=== PATIENT | female | born 1960 | race African-American/Black ===

== ENCOUNTER 2018-04-18 10:09 | Inpatient (IN) | payer OTHER, MEDICAID ==
[~2018-04-18] VITALS: Ht 172.7 cm; Wt 103.5 kg
[2018-04-18] MEDS ORDERED: SODIUM CHLORIDE 0.9% 1,000 ML IV ONE (10:33)
[2018-04-18] MEDS ORDERED: ceFAZolin 1GM/50ML 50 ML IV ONE (11:30)
[2018-04-18 11:50] LABS: Eosinophils # (auto) 0.1 uL; Lymphocytes # (auto) 1.4 uL; Mean Corpuscular Hgb Conc. 33.9 g/dL (32.0-36.0); Monocytes # (auto) 0.6 uL; Monocytes % (auto) 11.5 % (0.0-12.0); Nucleated Red Blood Cells % 0.1 %; White Blood Cell 5.4 10^3/uL (4.4-10.8)
[2018-04-18 11:52] LABS: Basophils # (auto) 0 uL; Basophils % (auto) 0.9 % (0.0-2.0); Eosinophils % (auto) 2.7 % (0.0-7.0); Hematocrit 32.2 % (36.0-46.0); Hemoglobin 10.9 g/dL (12.2-16.2); Lymphocytes % (auto) 25.2 % (10.0-50.0); Mean Corpuscular Hemoglobin 35.4 pg (28.0-32.0); Mean Corpuscular Volume 104.6 fL (80.0-100.0); Neutrophils # (auto) 3.2 uL; Neutrophils % (auto) 59.7 % (37.0-80.0); Platelet Count (auto) 142 10^3/uL (140-450); Red Blood Cells 3.07 10^6/uL (4.0-5.20); Red Cell Distribution Width 15.2 % (11.8-14.3)
[2018-04-18 12:25] LABS: Chloride 111 mmol/L (98-107); Potassium 5.4 mmol/L (3.5-5.1); Sodium 144 mmol/L (136-145)
[2018-04-18 12:27] LABS: Albumin 3.2 g/dL (3.4-5.0); Anion Gap 8 (5-15); BUN/Creatinine Ratio 23.1; Blood Urea Nitrogen 36 mg/dL (7-18); Calcium 8.9 mg/dL (8.5-10.1); Carbon Dioxide 25 mmol/L (21-32); GFR African American 44 mL/min; GFR Non-African American 36 mL/min; Glucose 64 mg/dL (74-106); Magnesium 2.3 mg/dL (1.6-2.6)
[2018-04-18 12:42] LABS: Alanine Aminotransferase 35 U/L (13-56); Alkaline Phosphatase 76 U/L (45-117); Aspartate Aminotransferase 46 U/L (15-37); Bilirubin, Total 0.7 mg/dL (0.2-1.0); Total Protein 7.8 g/dL (6.4-8.2)
[2018-04-18] MEDS ORDERED: MORPHINE SULFATE 4 MG/ML SYR/VIAL IV PRN ×2 (15:15)
[2018-04-18] MEDS ORDERED: NITROGLYCERIN 0.4 MG SL TAB SL PRN (15:15)
[2018-04-18] MEDS ORDERED: TEMAZEPAM 15 MG CAP PO PRN (15:15)
[2018-04-18] MEDS ORDERED: ONDANSETRON HCL 4 MG/2 ML VIAL IV PRN (15:15)
[2018-04-18] MEDS ORDERED: SODIUM POLYSTYRENE SULF 15GM/60ML SUSP PO ONE (15:15)
[2018-04-18] MEDS ORDERED: HYDROcodone-ACET 5/325MG TAB PO PRN (15:15)
[2018-04-18] MEDS ORDERED: DEXTROSE (50%) 50ML SYRG IV PRN (15:15)
[2018-04-18] MEDS ORDERED: LORazepam 0.5 MG TAB PO PRN (15:15)
[2018-04-18] MEDS ORDERED: ACETAMINOPHEN 500 MG TAB PO PRN (15:15)
[2018-04-18] MEDS ORDERED: LACTULOSE 20Gm/30ML SOLN PO ONE (15:15)
[2018-04-18] MEDS: FUROSEMIDE 40 MG/4 ML VIAL IV SCH (15:34)
[2018-04-18 16:02] LABS: Folate (Folic Acid) > 24.00 ng/mL (5.38-24)
[2018-04-18 17:00] VITALS: BP 120/95
[2018-04-18] MEDS: InsuLIN REG 1unit/0.01ml Soln (100units/ml) SC SCH ×2 (17:00→22:00)
[2018-04-18] MEDS: LACTULOSE 20Gm/30ML SOLN PO SCH (18:00)
[2018-04-18] MEDS: PANTOPRAZOLE 40 MG TAB PO SCH (19:32)
[2018-04-18] MEDS: ACCU-CHEK COMFORT CURVE STRIP VI SCH ×2 (19:32→22:00)
[2018-04-18] MEDS: SODIUM CHLOR 0.9% PF (SALINE LOCK) 10ML VIAL/SYR IV SCH (19:33)
[2018-04-18 20:00] VITALS: BP 130/67
[2018-04-18] MEDS ORDERED: LEVO25TA49 PO (20:12)
[2018-04-18] MEDS ORDERED: ALLO100T PO (20:12)
[2018-04-18] MEDS ORDERED: OXYB15TA12 PO (20:12)
[2018-04-18] MEDS ORDERED: MIDO10TA10 PO (20:12)
[2018-04-18] MEDS ORDERED: GABA300C10 PO (20:12)
[2018-04-18] MEDS ORDERED: ATOR20TA50 PO (20:12)
[2018-04-18] MEDS ORDERED: CITA-77 PO (20:12)
[2018-04-18] MEDS ORDERED: VALP250C3 PO (20:12)
[2018-04-18] MEDS ORDERED: OLAN10TA29 PO (20:12)
[2018-04-18] MEDS ORDERED: ALBUAER3 IN (20:12)
[2018-04-18 21:46] VITALS: BP 130/67
[2018-04-18] MEDS: CARVEDILOL 3.125 MG TAB PO SCH (22:00)
[2018-04-19] MEDS: LACTULOSE 20Gm/30ML SOLN PO SCH ×5 (00:45→23:57)
[2018-04-19 05:14] VITALS: BP 121/72
[2018-04-19] MEDS: SODIUM CHLOR 0.9% PF (SALINE LOCK) 10ML VIAL/SYR IV SCH ×3 (06:31→22:00)
[2018-04-19 06:59] LABS: Cholesterol 85 mg/dL (< 200); HDL Cholesterol 35 mg/dL (40-59); LDL Cholesterol 41 mg/dL (< 100); Triglycerides 68 mg/dL (< 150)
[2018-04-19] MEDS: InsuLIN REG 1unit/0.01ml Soln (100units/ml) SC SCH ×4 (07:00→22:00)
[2018-04-19] MEDS: ACCU-CHEK COMFORT CURVE STRIP VI SCH ×4 (07:08→22:00)
[2018-04-19 08:40] VITALS: BP 122/69
[2018-04-19] MEDS: ASPirin 81 mg TAB PO SCH (09:49)
[2018-04-19] MEDS: FUROSEMIDE 40 MG/4 ML VIAL IV SCH (09:49)
[2018-04-19] MEDS: PANTOPRAZOLE 40 MG TAB PO SCH (09:49)
[2018-04-19] MEDS: CARVEDILOL 3.125 MG TAB PO SCH ×2 (09:50→22:00)
[2018-04-19] MEDS: ENOXAPARIN SOD 40 MG/0.4 ML SYRINGE SC SCH (09:50)
[2018-04-19] MEDS ORDERED: ENALAPRIL MALEATE 2.5 MG TAB PO SCH (10:00)
[2018-04-19 12:26] VITALS: BP 97/58
[2018-04-19 16:46] VITALS: BP 97/57
[2018-04-19 20:00] VITALS: BP 100/61
[2018-04-19 22:19] VITALS: BP 100/61
[2018-04-20 05:00] VITALS: BP 117/67
[2018-04-20 05:51] LABS: Basophils # (auto) 0 uL; Eosinophils # (auto) 0.2 uL; Hemoglobin 11.4 g/dL (12.2-16.2); Lymphocytes # (auto) 1.3 uL; Monocytes # (auto) 0.7 uL; Monocytes % (auto) 14.7 % (0.0-12.0); Neutrophils # (auto) 2.7 uL; Nucleated Red Blood Cells % 0.1 %; Red Blood Cells 3.23 10^6/uL (4.0-5.20)
[2018-04-20 05:53] LABS: Basophils % (auto) 0.5 % (0.0-2.0); Eosinophils % (auto) 3.5 % (0.0-7.0); Hematocrit 33.9 % (36.0-46.0); Lymphocytes % (auto) 26.8 % (10.0-50.0); Mean Corpuscular Hemoglobin 35.2 pg (28.0-32.0); Mean Corpuscular Hgb Conc. 33.6 g/dL (32.0-36.0); Mean Corpuscular Volume 104.8 fL (80.0-100.0); Neutrophils % (auto) 54.5 % (37.0-80.0); Platelet Count (auto) 168 10^3/uL (140-450); Red Cell Distribution Width 14.6 % (11.8-14.3)
[2018-04-20 06:12] LABS: Albumin 3.1 g/dL (3.4-5.0); BUN/Creatinine Ratio 19.4; Bilirubin, Direct 0.3 mg/dL (0-0.2); Calcium 8.9 mg/dL (8.5-10.1); Potassium 4.4 mmol/L (3.5-5.1)
[2018-04-20 06:15] LABS: Bilirubin, Total 0.4 mg/dL (0.2-1.0); Total Protein 7.6 g/dL (6.4-8.2)
[2018-04-20] MEDS: SODIUM CHLOR 0.9% PF (SALINE LOCK) 10ML VIAL/SYR IV SCH ×2 (06:19→12:17)
[2018-04-20] MEDS: LACTULOSE 20Gm/30ML SOLN PO SCH ×2 (06:20→12:17)
[2018-04-20] MEDS: ACCU-CHEK COMFORT CURVE STRIP VI SCH ×2 (07:00→11:29)
[2018-04-20] MEDS: InsuLIN REG 1unit/0.01ml Soln (100units/ml) SC SCH ×2 (07:00→11:30)
[2018-04-20 09:00] VITALS: BP 119/71
[2018-04-20] MEDS: FUROSEMIDE 40 MG/4 ML VIAL IV SCH (10:00)
[2018-04-20] MEDS ORDERED: ENALAPRIL MALEATE 2.5 MG TAB PO SCH (10:00)
[2018-04-20] MEDS: ENOXAPARIN SOD 40 MG/0.4 ML SYRINGE SC SCH (10:16)
[2018-04-20] MEDS: ASPirin 81 mg TAB PO SCH (10:17)
[2018-04-20] MEDS: CARVEDILOL 3.125 MG TAB PO SCH (10:17)
[2018-04-20] MEDS: PANTOPRAZOLE 40 MG TAB PO SCH (10:17)
[2018-04-20 13:00] VITALS: BP 123/78
[2018-04-20 15:38] VITALS: BP_SYST 119; BP_SYST 125; BP_DIAS 71; BP_DIAS 76
[2018-04-20 17:00] VITALS: BP 125/76
== END 2018-04-20 17:00 | disposition home or self-care (01) | DRG 441 ==
LOC: ER 10:10 → TELE 10:11 → TELE-EAST 16:58
PROVIDERS: ADMIT Internal Medicine; ATTEND Internal Medicine
DX: K72.90 Hepatic failure, unspecified without coma (principal); N17.0 Acute kidney failure with tubular necrosis; E44.0 Moderate protein-calorie malnutrition; R78.81 Bacteremia; E87.5 Hyperkalemia; F20.9 Schizophrenia, unspecified; N18.3 Chronic kidney disease, stage 3 (moderate); E11.22 Type 2 diabetes mellitus with diabetic chronic kidney disease; E03.9 Hypothyroidism, unspecified; D63.8 Anemia in other chronic diseases classified elsewhere; B19.20 Unspecified viral hepatitis C without hepatic coma; Z96.651 Presence of right artificial knee joint; I12.9 Hypertensive chronic kidney disease with stage 1 through stage 4 chronic kidney disease, or unspecified chronic kidney disease; Z87.891 Personal history of nicotine dependence; Z87.81 Personal history of (healed) traumatic fracture; W19.XXXA Unspecified fall, initial encounter; Y93.89 Activity, other specified; Y92.89 Other specified places as the place of occurrence of the external cause; Y99.8 Other external cause status
CPT/HCPCS: 36415; 70450; 71045; 73030; 73562; 80048; 80053; 80061; 80076; 82140; 82550; 82607; 82746; 82962; 83036; 83735; 83880; 84443; 84484; 85025; 85652; 87081; 93005; 93306; 93886; 96361; 96374; J0690

== ENCOUNTER 2018-10-10 21:17 | Emergency (ER) | payer MEDICAID, OTHER ==
[~2018-10-10] VITALS: Ht 172.7 cm; Wt 99.8 kg
[~2018-10-10 21:17] MED LIST: ALBUAER3 IN; ALLO100T PO; ATOR20TA50 PO; CITA-77 PO; GABA300C10 PO; LEVO25TA49 PO; MIDO10TA10 PO; OLAN10TA29 PO; OXYB15TA12 PO; VALP250C3 PO
[2018-10-10] MEDS ORDERED: SODIUM CHLORIDE 0.9% 1,000 ML IVB ONE (21:48)
[2018-10-10 22:37] LABS: Basophils # (auto) 0.1 uL; Hemoglobin 11.5 g/dL (12.2-16.2); Monocytes # (auto) 0.4 uL; Neutrophils # (auto) 2.5 uL; White Blood Cell 5.1 10^3/uL (4.4-10.8)
[2018-10-10 22:39] LABS: Basophils % (auto) 1.1 % (0.0-2.0); Eosinophils # (auto) 0.2 uL; Eosinophils % (auto) 4.9 % (0.0-7.0); Hematocrit 34.9 % (36.0-46.0); Lymphocytes # (auto) 1.9 uL; Lymphocytes % (auto) 36.9 % (10.0-50.0); Mean Corpuscular Hemoglobin 34.4 pg (28.0-32.0); Mean Corpuscular Hgb Conc. 32.8 g/dL (32.0-36.0); Mean Corpuscular Volume 104.9 fL (80.0-100.0); Monocytes % (auto) 8.4 % (0.0-12.0); Neutrophils % (auto) 48.7 % (37.0-80.0); Nucleated Red Blood Cells % 0.1 %; Platelet Count (auto) 173 10^3/uL (140-450); Red Blood Cells 3.33 10^6/uL (4.0-5.20)
[2018-10-10 22:55] LABS: Alanine Aminotransferase 24 U/L (13-56); Albumin 3.4 g/dL (3.4-5.0); Anion Gap 7 (5-15); Aspartate Aminotransferase 25 U/L (15-37); BUN/Creatinine Ratio 20.8; Blood Alcohol < 3.0 mg/dL (0-5); Blood Urea Nitrogen 22 mg/dL (7-18); Calcium 9.5 mg/dL (8.5-10.1); Carbon Dioxide 26 mmol/L (21-32); Chloride 111 mmol/L (98-107); GFR African American 68 mL/min; GFR Non-African American 57 mL/min; Glucose 115 mg/dL (74-106); Salicylate < 1.7 mg/dL (2.8-20.0); Sodium 144 mmol/L (136-145)
[2018-10-10 22:57] LABS: Alkaline Phosphatase 95 U/L (45-117); Bilirubin, Total 0.4 mg/dL (0.2-1.0); Total Protein 7.8 g/dL (6.4-8.2)
[2018-10-11 00:19] LABS: Acetaminophen < 2.0 ug/mL (10-30)
[2018-10-11 01:00] LABS: Alcohol, Urine < 3.0 mg/dL (0-5); Amphetamine Screen, Urine NEGATIVE (NEGATIVE); Barbiturate Scree,Urine NEGATIVE (NEGATIVE); Benzodiazephine Screen, Urine NEGATIVE (NEGATIVE); Cannabinoid Screen, Urine NEGATIVE (NEGATIVE); Cocaine Screen, Urine NEGATIVE (NEGATIVE); Opiate Scree,Urine NEGATIVE (NEGATIVE); Phencyclidine Screen, Urine NEGATIVE (NEGATIVE)
[2018-10-11 01:56] VITALS: BP 142/79
== END 2018-10-11 02:13 | disposition home or self-care (01) ==
LOC: ER 21:23
DX: T49.6X2A Poisoning by otorhinolaryngological drugs and preparations, intentional self-harm, initial encounter (principal); E11.9 Type 2 diabetes mellitus without complications; I10 Essential (primary) hypertension; F20.9 Schizophrenia, unspecified; Y92.89 Other specified places as the place of occurrence of the external cause
CPT/HCPCS: 36415; 80053; 80307; 80320; 80329; 85025; 99284; J7030

== ENCOUNTER 2019-06-06 09:59 | Emergency (ER) | payer OTHER ==
[~2019-06-06] VITALS: Ht 172.7 cm; Wt 79.4 kg
[~2019-06-06 09:59] MED LIST changes: +AMOX500T92 PO; +LEV25T PO; -LEVO25TA49 PO; +METF-370 PO; -MIDO10TA10 PO
[2019-06-06] MEDS ORDERED: LORazepam 0.5 MG TAB PO ONE (16:15)
[2019-06-06] MEDS ORDERED: LORazepam 2MG/ML-1ML VIAL IM ONE (18:30)
[2019-06-06] MEDS ORDERED: HALOPERIDOL LACTATE 5 MG/ML INJ VIAL IM ONE (18:30)
[2019-06-06] MEDS ORDERED: diphenhdrAMINE HCL 50 MG/1 ML VL IM ONE (18:30)
[2019-06-06] MEDS ORDERED: HALOPERIDOL LACTATE 5 MG/ML INJ VIAL ONE (18:48)
[2019-06-06 22:40] LABS: Chloride 112 mmol/L (98-107); Sodium 143 mmol/L (136-145)
[2019-06-06 22:46] LABS: Alanine Aminotransferase 30 U/L (13-56); Albumin 2.8 g/dL (3.4-5.0); Alkaline Phosphatase 130 U/L (45-117); Anion Gap 4 (5-15); Aspartate Aminotransferase 43 U/L (15-37); BUN/Creatinine Ratio 30.7; Bilirubin, Total 0.5 mg/dL (0.2-1.0); Blood Alcohol < 3.0 mg/dL (0-5); Blood Urea Nitrogen 39 mg/dL (7-18); Calcium 8.8 mg/dL (8.5-10.1); Carbon Dioxide 27 mmol/L (21-32); GFR African American 56 mL/min; GFR Non-African American 46 mL/min; Glucose 137 mg/dL (74-106); Total Protein 7.2 g/dL (6.4-8.2)
[2019-06-06 22:51] LABS: Potassium 5.9 mmol/L (3.5-5.1)
[2019-06-06] MEDS ORDERED: CALCIUM GLUC 4.65meq/50ml D5AE 50 ML IV ONE (23:15)
[2019-06-06] MEDS ORDERED: SODIUM CHLORIDE 0.9% 1,000 ML IV ONE (23:15)
[2019-06-06] MEDS ORDERED: SODIUM BICARBONATE 8.4 % INJ 50ML VIAL IV ONE (23:15)
[2019-06-07 01:47] LABS: Basophils # (auto) 0.1 uL; Eosinophils # (auto) 0.3 uL; Eosinophils % (auto) 6.3 % (0.0-7.0); Neutrophils # (auto) 2.7 uL; White Blood Cell 5.2 10^3/uL (4.4-10.8)
[2019-06-07 01:50] LABS: Basophils % (auto) 2.2 % (0.0-2.0); Hematocrit 30.6 % (36.0-46.0); Hemoglobin 10.5 g/dL (12.2-16.2); Lymphocytes # (auto) 1.5 uL; Lymphocytes % (auto) 27.9 % (10.0-50.0); Mean Corpuscular Hemoglobin 35.1 pg (28.0-32.0); Mean Corpuscular Hgb Conc. 34.2 g/dL (32.0-36.0); Mean Corpuscular Volume 102.5 fL (80.0-100.0); Monocytes # (auto) 0.6 uL; Neutrophils % (auto) 52.6 % (37.0-80.0); Platelet Count (auto) 195 10^3/uL (140-450); Red Blood Cells 2.99 10^6/uL (4.0-5.20); Red Cell Distribution Width 14.3 % (11.8-14.3)
[2019-06-07 04:35] LABS: Calcium 8.9 mg/dL (8.5-10.1)
[2019-06-07 04:37] LABS: Albumin 2.4 g/dL (3.4-5.0); BUN/Creatinine Ratio 26.2
[2019-06-07 04:40] LABS: Bilirubin, Total 0.4 mg/dL (0.2-1.0); Total Protein 6.7 g/dL (6.4-8.2)
[2019-06-07 12:44] VITALS: BP 117/48
== END 2019-06-07 14:17 | disposition home or self-care (01) ==
LOC: EDBD 09:59 → ER 09:59
DX: F41.9 Anxiety disorder, unspecified (principal); F20.9 Schizophrenia, unspecified; F17.210 Nicotine dependence, cigarettes, uncomplicated
CPT/HCPCS: 36415; 80053; 80320; 85025; 96365; 96372; 96375; 99284; J0610; J1200; J1630; J2060

== ENCOUNTER 2020-05-05 13:59 | Inpatient (IN) | payer OTHER ==
[~2020-05-05] VITALS: Ht 172.7 cm; Wt 98.6 kg
[~2020-05-05 13:59] MED LIST changes: -OLAN10TA29 PO; +OLAN1TAB19 PO
[2020-05-05] MEDS ORDERED: SODIUM CHLORIDE 0.9% 1,000 ML IV ONE (15:30)
[2020-05-05] MEDS ORDERED: TETANUS-DIPTH-ACEL PERTUSSIS 0.5ML SYR Tdap IM ONE (15:45)
[2020-05-05] MEDS ORDERED: cefTRIAXone 1GM/50ML D5W 50 ML IV ONE ×2 (15:45→16:45)
[2020-05-05 15:59] LABS: Basophils # (auto) 0 10 ^3/uL (0-0.2); Eosinophils # (auto) 0.1 10 ^3/uL (0-0.8); Mean Corpuscular Volume 104.5 fL (80.0-100.0); Monocytes # (auto) 0.7 10 ^3/uL (0-1.3); Neutrophils # (auto) 4.1 10 ^3/uL (1.6-8.6); White Blood Cell 6.6 10^3/uL (4.4-10.8)
[2020-05-05 16:01] LABS: Basophils % (auto) 0.5 % (0.0-2.0); Eosinophils % (auto) 2.1 % (0.0-7.0); Hematocrit 32.8 % (36.0-46.0); Hemoglobin 10.9 g/dL (12.2-16.2); Lymphocytes # (auto) 1.7 10 ^3/uL (0.4-5.4); Mean Corpuscular Hemoglobin 34.9 pg (28.0-32.0); Mean Corpuscular Hgb Conc. 33.4 g/dL (32.0-36.0); Monocytes % (auto) 10.7 % (0.0-12.0); Neutrophils % (auto) 61.7 % (37.0-80.0); Platelet Count (auto) 183 10^3/uL (140-450); Red Blood Cells 3.14 10^6/uL (4.0-5.20); Red Cell Distribution Width 14.2 % (11.8-14.3)
[2020-05-05 16:17] LABS: Albumin 3.2 g/dL (3.4-5.0); Anion Gap 5 (5-15); Blood Urea Nitrogen 32 mg/dL (7-18); Calcium 9.1 mg/dL (8.5-10.1); Carbon Dioxide 27 mmol/L (21-32); Chloride 112 mmol/L (98-107); Glucose 87 mg/dL (74-106); Magnesium 2.4 mg/dL (1.6-2.6); Potassium 4.4 mmol/L (3.5-5.1); Sodium 144 mmol/L (136-145)
[2020-05-05 16:21] LABS: Alanine Aminotransferase 20 U/L (13-56); Alkaline Phosphatase 76 U/L (45-117); Aspartate Aminotransferase 20 U/L (15-37); BUN/Creatinine Ratio 27.6; Bilirubin, Total 0.5 mg/dL (0.2-1.0); GFR African American 61 mL/min; GFR Non-African American 51 mL/min; Total Protein 7.4 g/dL (6.4-8.2)
[2020-05-05 16:25] LABS: Urine Bacteria FEW /hpf (None Seen); Urine Blood Negative /uL (Negative); Urine Specific Gravity 1.011 (1.001-1.035); Urine WBC 6 /hpf (0 - 5)
[2020-05-05] MEDS ORDERED: SPIRONOLACTONE 25 MG TAB PO ONE (16:45)
[2020-05-05] MEDS ORDERED: FUROSEMIDE 40 MG/4 ML VIAL IV ONE (16:45)
[2020-05-05] MEDS ORDERED: NITROGLYCERIN 0.4 MG SL TAB SL PRN (18:00)
[2020-05-05] MEDS ORDERED: MORPHINE SULF INJ 2 MG/ML SYRINGE 1ML IV PRN ×2 (18:00)
[2020-05-05] MEDS ORDERED: ACETAMINOPHEN 500 MG TAB PO PRN (18:00)
[2020-05-05] MEDS ORDERED: DEXTROSE (50%) 50ML SYRG IV PRN (18:00)
[2020-05-05] MEDS ORDERED: ONDANSETRON HCL 4 MG/2 ML VIAL IV PRN (18:00)
[2020-05-05] MEDS ORDERED: HYDROcodone-ACET 5/325MG TAB PO PRN (18:00)
[2020-05-05] MEDS: DOXYCYCLINE 100MG/250ML 250 ML IV SCH (18:26)
[2020-05-05] MEDS: GABAPENTIN 300 MG CAP PO SCH (21:45)
[2020-05-05] MEDS: METOPROLOL TARTRATE 25 MG TAB PO SCH (21:46)
[2020-05-05] MEDS: OLANZapine 5 MG TAB PO SCH (21:46)
[2020-05-05] MEDS: ATORVASTATIN 20 MG TAB PO SCH (21:47)
[2020-05-05] MEDS: ACCU-CHEK COMFORT CURVE STRIP VI SCH (21:47)
[2020-05-05] MEDS: VALPROIC ACID 250 MG/5 ML ORAL SOLN PO SCH (21:47)
[2020-05-05] MEDS: InsuLIN REG 1unit/0.01ml Soln (100units/ml) SC SCH (21:54)
[2020-05-06 00:33] VITALS: BP 136/58
[2020-05-06] MEDS: DOXYCYCLINE 100MG/250ML 250 ML IV SCH (05:08)
[2020-05-06 05:23] VITALS: BP 105/51
[2020-05-06] MEDS: LEVOTHYROXINE SODIUM 25 MCG TAB PO SCH (05:51)
[2020-05-06] MEDS: ACCU-CHEK COMFORT CURVE STRIP VI SCH ×2 (05:51→11:30)
[2020-05-06] MEDS: InsuLIN REG 1unit/0.01ml Soln (100units/ml) SC SCH ×2 (05:58→11:30)
[2020-05-06 09:20] VITALS: BP 108/60
[2020-05-06] MEDS ORDERED: FUROSEMIDE 20 MG/2 ML VIAL IV SCH (10:00)
[2020-05-06] MEDS: cefTRIAXone 1GM/50ML D5W 50 ML IV SCH (10:21)
[2020-05-06] MEDS: METOPROLOL TARTRATE 25 MG TAB PO SCH ×2 (10:23→21:51)
[2020-05-06] MEDS: CITALOPRAM HYDROBR 20 MG TAB PO SCH (10:23)
[2020-05-06] MEDS: VALPROIC ACID 250 MG/5 ML ORAL SOLN PO SCH ×2 (10:23→21:50)
[2020-05-06] MEDS: FAMOTIDINE 20 MG TAB PO SCH (10:24)
[2020-05-06] MEDS: OLANZapine 5 MG TAB PO SCH ×2 (10:24→21:50)
[2020-05-06] MEDS: GABAPENTIN 300 MG CAP PO SCH ×2 (10:24→21:51)
[2020-05-06] MEDS: ALLOPURINOL 100 MG TAB PO SCH (10:24)
[2020-05-06 13:16] VITALS: BP 111/50
[2020-05-06 16:37] VITALS: BP 105/55
[2020-05-06] MEDS: SODIUM CHLORIDE 0.9% 1,000 ML IV SCH (16:54)
[2020-05-06] MEDS: ATORVASTATIN 20 MG TAB PO SCH (21:50)
[2020-05-06 22:00] VITALS: BP 96/65
[2020-05-07 05:30] VITALS: BP 108/62
[2020-05-07] MEDS: LEVOTHYROXINE SODIUM 25 MCG TAB PO SCH (06:06)
[2020-05-07 09:22] VITALS: BP 101/54
[2020-05-07] MEDS: cefTRIAXone 1GM/50ML D5W 50 ML IV SCH (10:13)
[2020-05-07] MEDS: FAMOTIDINE 20 MG TAB PO SCH (10:18)
[2020-05-07] MEDS: VALPROIC ACID 250 MG/5 ML ORAL SOLN PO SCH ×2 (10:18→21:47)
[2020-05-07] MEDS: GABAPENTIN 300 MG CAP PO SCH ×2 (10:18→21:45)
[2020-05-07] MEDS: ALLOPURINOL 100 MG TAB PO SCH (10:18)
[2020-05-07] MEDS: OLANZapine 5 MG TAB PO SCH ×2 (10:19→21:46)
[2020-05-07] MEDS: CITALOPRAM HYDROBR 20 MG TAB PO SCH (10:19)
[2020-05-07] MEDS: METOPROLOL TARTRATE 25 MG TAB PO SCH ×2 (10:19→21:51)
[2020-05-07 10:55] LABS: Basophils # (auto) 0 10 ^3/uL (0-0.2); Eosinophils # (auto) 0.2 10 ^3/uL (0-0.8); Mean Corpuscular Volume 104.7 fL (80.0-100.0); Neutrophils # (auto) 2.3 10 ^3/uL (1.6-8.6)
[2020-05-07 10:58] LABS: Eosinophils % (auto) 4.5 % (0.0-7.0); Hematocrit 33.9 % (36.0-46.0); Hemoglobin 11.3 g/dL (12.2-16.2); Lymphocytes # (auto) 1.4 10 ^3/uL (0.4-5.4); Lymphocytes % (auto) 30.3 % (10.0-50.0); Mean Corpuscular Hemoglobin 34.7 pg (28.0-32.0); Mean Corpuscular Hgb Conc. 33.2 g/dL (32.0-36.0); Monocytes # (auto) 0.6 10 ^3/uL (0-1.3); Monocytes % (auto) 13.3 % (0.0-12.0); Neutrophils % (auto) 50.9 % (37.0-80.0); Platelet Count (auto) 190 10^3/uL (140-450); Red Blood Cells 3.24 10^6/uL (4.0-5.20); White Blood Cell 4.5 10^3/uL (4.4-10.8)
[2020-05-07 11:28] LABS: BUN/Creatinine Ratio 25.9; Magnesium 2.3 mg/dL (1.6-2.6); Potassium 4.5 mmol/L (3.5-5.1)
[2020-05-07] MEDS: SODIUM CHLORIDE 0.9% 1,000 ML IV SCH (12:15)
[2020-05-07 12:50] VITALS: BP 116/69
[2020-05-07 16:52] VITALS: BP 117/60
[2020-05-07] MEDS: ATORVASTATIN 20 MG TAB PO SCH (21:45)
[2020-05-07 22:00] VITALS: BP 97/62
[2020-05-08 05:00] VITALS: BP 116/66
[2020-05-08] MEDS: LEVOTHYROXINE SODIUM 25 MCG TAB PO SCH (06:17)
[2020-05-08] MEDS: cefTRIAXone 1GM/50ML D5W 50 ML IV SCH (08:25)
[2020-05-08] MEDS: SODIUM CHLORIDE 0.9% 1,000 ML IV SCH (08:25)
[2020-05-08 08:54] VITALS: BP 130/68
[2020-05-08] MEDS: FAMOTIDINE 20 MG TAB PO SCH (09:22)
[2020-05-08] MEDS: OLANZapine 5 MG TAB PO SCH (09:23)
[2020-05-08] MEDS: CITALOPRAM HYDROBR 20 MG TAB PO SCH (09:23)
[2020-05-08] MEDS: ALLOPURINOL 100 MG TAB PO SCH (09:23)
[2020-05-08] MEDS: VALPROIC ACID 250 MG/5 ML ORAL SOLN PO SCH (09:24)
[2020-05-08] MEDS: GABAPENTIN 300 MG CAP PO SCH (09:24)
[2020-05-08] MEDS: METOPROLOL TARTRATE 25 MG TAB PO SCH (09:25)
[2020-05-08 09:51] VITALS: BP 130/68
== END 2020-05-08 12:10 | disposition home health service (06) | DRG 604 ==
LOC: ER 13:59 → EDBD 13:59 → TELE-EAST 14:00 → TELE-CENTR 05-06 03:10
PROVIDERS: ADMIT Nurse Practitioner Acute Care; ATTEND Family Medicine
DX: S80.212A Abrasion, left knee, initial encounter (principal); N17.0 Acute kidney failure with tubular necrosis; E44.1 Mild protein-calorie malnutrition; N39.0 Urinary tract infection, site not specified; R05 Cough; F20.9 Schizophrenia, unspecified; F31.9 Bipolar disorder, unspecified; E11.21 Type 2 diabetes mellitus with diabetic nephropathy; E66.9 Obesity, unspecified; J44.9 Chronic obstructive pulmonary disease, unspecified; Z20.828 Contact with and (suspected) exposure to other viral communicable diseases; I10 Essential (primary) hypertension; S80.211A Abrasion, right knee, initial encounter; W01.0XXA Fall on same level from slipping, tripping and stumbling without subsequent striking against object, initial encounter; Y93.01 Activity, walking, marching and hiking; Z68.33 Body mass index [BMI] 33.0-33.9, adult; Y92.89 Other specified places as the place of occurrence of the external cause; Y99.8 Other external cause status
CPT/HCPCS: 36415; 71045; 73562; 80048; 80053; 80164; 81001; 82962; 83036; 83605; 83735; 83880; 84443; 84484; 85025; 87040; 87081; 87086; 87426; 90471; 90715; 93005; 96365; 96375; 97116; 97163; 97530; G0378; J0696; J1815; J3490

== ENCOUNTER 2020-05-10 07:30 | Emergency (ER) | payer OTHER ==
[~2020-05-10] VITALS: Ht 170.2 cm; Wt 79.4 kg
[2020-05-10] MEDS ORDERED: SODIUM CHLORIDE 0.9% 1,000 ML IV ONE (09:00)
[2020-05-10 09:21] LABS: Eosinophils # (auto) 0.3 10 ^3/uL (0-0.8); Hemoglobin 10.3 g/dL (12.2-16.2); Lymphocytes # (auto) 1.6 10 ^3/uL (0.4-5.4); Monocytes # (auto) 0.9 10 ^3/uL (0-1.3)
[2020-05-10 09:22] LABS: Basophils # (auto) 0 10 ^3/uL (0-0.2); Basophils % (auto) 0.7 % (0.0-2.0); Eosinophils % (auto) 4.6 % (0.0-7.0); Mean Corpuscular Hemoglobin 34.7 pg (28.0-32.0); Mean Corpuscular Hgb Conc. 33.1 g/dL (32.0-36.0); Mean Corpuscular Volume 104.9 fL (80.0-100.0); Monocytes % (auto) 15.7 % (0.0-12.0); Nucleated Red Blood Cells % 0.2 %; Platelet Count (auto) 170 10^3/uL (140-450); Red Blood Cells 2.96 10^6/uL (4.0-5.20); Red Cell Distribution Width 14.3 % (11.8-14.3); White Blood Cell 5.8 10^3/uL (4.4-10.8)
[2020-05-10 09:41] LABS: Albumin 3.2 g/dL (3.4-5.0); Anion Gap 4 (5-15); Blood Urea Nitrogen 36 mg/dL (7-18); Calcium 9.6 mg/dL (8.5-10.1); Carbon Dioxide 26 mmol/L (21-32); Chloride 113 mmol/L (98-107); Glucose 104 mg/dL (74-106); Magnesium 2.3 mg/dL (1.6-2.6); Potassium 4.6 mmol/L (3.5-5.1); Sodium 143 mmol/L (136-145)
[2020-05-10] MEDS ORDERED: LORazepam 2MG/ML-1ML VIAL IM ONE (09:45)
[2020-05-10 09:48] LABS: Alanine Aminotransferase 23 U/L (13-56); Alkaline Phosphatase 78 U/L (45-117); Aspartate Aminotransferase 36 U/L (15-37); BUN/Creatinine Ratio 26.7; Bilirubin, Total 0.5 mg/dL (0.2-1.0); GFR African American 52 mL/min; GFR Non-African American 43 mL/min; Total Protein 7.4 g/dL (6.4-8.2)
[2020-05-10 10:04] LABS: INR 1.24 (0.9-1.15); Partial Thromboplastin Time 22.2 sec (23.0-31.2)
[2020-05-10 11:22] LABS: Urine WBC None Seen /hpf (0 - 5)
[2020-05-10 11:30] LABS: Urine Bacteria NONE SEEN /hpf (None Seen); Urine Blood Negative /uL (Negative); Urine Specific Gravity 1.013 (1.001-1.035)
[2020-05-10 15:39] VITALS: BP 134/72
== END 2020-05-10 15:42 | disposition home or self-care (01) ==
LOC: EDBD 07:30 → ER 07:30
DX: S82.001A Unspecified fracture of right patella, initial encounter for closed fracture (principal); S86.911A Strain of unspecified muscle(s) and tendon(s) at lower leg level, right leg, initial encounter; F20.9 Schizophrenia, unspecified; F31.9 Bipolar disorder, unspecified; J44.9 Chronic obstructive pulmonary disease, unspecified; E78.5 Hyperlipidemia, unspecified; E11.9 Type 2 diabetes mellitus without complications; I10 Essential (primary) hypertension; Z87.891 Personal history of nicotine dependence; W18.39XA Other fall on same level, initial encounter; Y93.89 Activity, other specified; Y92.89 Other specified places as the place of occurrence of the external cause; Y99.8 Other external cause status
CPT/HCPCS: 29505; 36415; 71045; 72192; 73700; 80053; 81001; 83735; 84484; 85025; 85610; 85730; 93005; 96372; 99285; J2060

== ENCOUNTER 2020-05-17 15:17 | Inpatient (IN) | payer OTHER ==
[~2020-05-17] VITALS: Ht 167.6 cm; Wt 96.8 kg
[2020-05-17 17:38] LABS: Basophils # (auto) 0 10 ^3/uL (0-0.2); Basophils % (auto) 0.3 % (0.0-2.0); Eosinophils # (auto) 0.2 10 ^3/uL (0-0.8); Eosinophils % (auto) 3.2 % (0.0-7.0); Hematocrit 34.9 % (36.0-46.0); Hemoglobin 11.5 g/dL (12.2-16.2); Lymphocytes # (auto) 2.1 10 ^3/uL (0.4-5.4); Lymphocytes % (auto) 27.3 % (10.0-50.0); Mean Corpuscular Hemoglobin 34.5 pg (28.0-32.0); Mean Corpuscular Hgb Conc. 32.9 g/dL (32.0-36.0); Mean Corpuscular Volume 104.9 fL (80.0-100.0); Monocytes # (auto) 0.8 10 ^3/uL (0-1.3); Neutrophils # (auto) 4.6 10 ^3/uL (1.6-8.6); Neutrophils % (auto) 59.2 % (37.0-80.0); Nucleated Red Blood Cells % 0.1 %; Platelet Count (auto) 203 10^3/uL (140-450); Red Blood Cells 3.32 10^6/uL (4.0-5.20); Red Cell Distribution Width 14.4 % (11.8-14.3); White Blood Cell 7.7 10^3/uL (4.4-10.8)
[2020-05-17 18:05] LABS: Albumin 3.1 g/dL (3.4-5.0); Potassium 4.5 mmol/L (3.5-5.1)
[2020-05-17 18:09] LABS: BUN/Creatinine Ratio 24.8; Bilirubin, Total 0.5 mg/dL (0.2-1.0)
[2020-05-17] MEDS ORDERED: ACETAMINOPHEN 500 MG TAB PO PRN (19:15)
[2020-05-17] MEDS ORDERED: ONDANSETRON HCL 4 MG/2 ML VIAL IV PRN (19:15)
[2020-05-17] MEDS ORDERED: SODIUM CHLORIDE 0.9% 1,000 ML IV ONE (19:15)
[2020-05-17] MEDS: LACTULOSE 20Gm/30ML SOLN PO SCH (23:14)
[2020-05-17] MEDS: DOCUSATE SOD 100 MG CAP PO SCH (23:14)
[2020-05-17] MEDS: GABAPENTIN 300 MG CAP PO SCH (23:15)
[2020-05-17] MEDS: OLANZapine 5 MG TAB PO SCH (23:15)
[2020-05-17] MEDS: ATORVASTATIN 20 MG TAB PO SCH (23:15)
[2020-05-18] VITALS (8 sets, daily range): BP systolic 111–140; BP diastolic 55–83
[2020-05-18] MEDS: LACTULOSE 20Gm/30ML SOLN PO SCH ×6 (02:00→23:04)
[2020-05-18] MEDS: LEVOTHYROXINE SODIUM 25 MCG TAB PO SCH (06:30)
[2020-05-18] MEDS: DOCUSATE SOD 100 MG CAP PO SCH ×2 (09:53→23:04)
[2020-05-18] MEDS: FAMOTIDINE 20 MG TAB PO SCH (09:53)
[2020-05-18] MEDS: ALLOPURINOL 100 MG TAB PO SCH (09:54)
[2020-05-18] MEDS: CITALOPRAM HYDROBR 20 MG TAB PO SCH (09:54)
[2020-05-18] MEDS: OLANZapine 5 MG TAB PO SCH ×2 (09:54→23:04)
[2020-05-18] MEDS: GABAPENTIN 300 MG CAP PO SCH ×2 (09:54→23:05)
[2020-05-18] MEDS: ATORVASTATIN 20 MG TAB PO SCH (23:05)
[2020-05-19] MEDS: LACTULOSE 20Gm/30ML SOLN PO SCH ×6 (02:00→22:00)
[2020-05-19 02:58] VITALS: BP 154/99
[2020-05-19] MEDS: LEVOTHYROXINE SODIUM 25 MCG TAB PO SCH (06:28)
[2020-05-19 06:59] LABS: Calcium 9.2 mg/dL (8.5-10.1); Potassium 4.7 mmol/L (3.5-5.1)
[2020-05-19 07:02] LABS: BUN/Creatinine Ratio 22.8
[2020-05-19 07:33] LABS: Basophils # (auto) 0 10 ^3/uL (0-0.2); Basophils % (auto) 0.6 % (0.0-2.0); Eosinophils # (auto) 0.2 10 ^3/uL (0-0.8); Hematocrit 37.9 % (36.0-46.0); Hemoglobin 12.2 g/dL (12.2-16.2); Lymphocytes # (auto) 1.8 10 ^3/uL (0.4-5.4); Mean Corpuscular Hgb Conc. 32.1 g/dL (32.0-36.0); Mean Corpuscular Volume 105.4 fL (80.0-100.0); Neutrophils # (auto) 3.9 10 ^3/uL (1.6-8.6); Nucleated Red Blood Cells % 0.1 %
[2020-05-19 07:35] LABS: Eosinophils % (auto) 3.6 % (0.0-7.0); Mean Corpuscular Hemoglobin 33.8 pg (28.0-32.0); Monocytes # (auto) 0.7 10 ^3/uL (0-1.3); Monocytes % (auto) 9.8 % (0.0-12.0); Platelet Count (auto) 210 10^3/uL (140-450); Red Cell Distribution Width 14.6 % (11.8-14.3); White Blood Cell 6.7 10^3/uL (4.4-10.8)
[2020-05-19 08:49] VITALS: BP 104/72
[2020-05-19] MEDS: OLANZapine 5 MG TAB PO SCH (11:29)
[2020-05-19] MEDS: GABAPENTIN 300 MG CAP PO SCH (11:29)
[2020-05-19] MEDS: FAMOTIDINE 20 MG TAB PO SCH (11:29)
[2020-05-19] MEDS: DOCUSATE SOD 100 MG CAP PO SCH ×2 (11:30→22:00)
[2020-05-19] MEDS: ALLOPURINOL 100 MG TAB PO SCH (11:30)
[2020-05-19] MEDS: CITALOPRAM HYDROBR 20 MG TAB PO SCH (11:30)
[2020-05-19 12:24] VITALS: BP 104/60
[2020-05-19] MEDS ORDERED: SODIUM CHLORIDE 0.9% 1,000 ML IV ONE (14:00)
[2020-05-19] MEDS ORDERED: SODIUM CHLORIDE 0.9% 1,000 ML IV SCH (14:15)
[2020-05-19 17:05] VITALS: BP 110/56
[2020-05-19 22:00] VITALS: BP 104/62
[2020-05-20] MEDS: ATORVASTATIN 20 MG TAB PO SCH ×2 (00:13→22:59)
[2020-05-20] MEDS: GABAPENTIN 300 MG CAP PO SCH ×3 (00:13→22:59)
[2020-05-20] MEDS: OLANZapine 5 MG TAB PO SCH ×3 (00:13→23:00)
[2020-05-20] MEDS: LACTULOSE 20Gm/30ML SOLN PO SCH ×6 (02:00→22:00)
[2020-05-20 05:00] VITALS: BP 106/58
[2020-05-20 06:30] LABS: Basophils # (auto) 0 10 ^3/uL (0-0.2); Basophils % (auto) 0.5 % (0.0-2.0); Eosinophils # (auto) 0.3 10 ^3/uL (0-0.8); Eosinophils % (auto) 4.6 % (0.0-7.0); Hematocrit 32.8 % (36.0-46.0); Hemoglobin 10.7 g/dL (12.2-16.2); Mean Corpuscular Hemoglobin 34.2 pg (28.0-32.0); Mean Corpuscular Hgb Conc. 32.5 g/dL (32.0-36.0); Mean Corpuscular Volume 105.2 fL (80.0-100.0); Monocytes # (auto) 0.7 10 ^3/uL (0-1.3); Monocytes % (auto) 10.8 % (0.0-12.0); Neutrophils # (auto) 3.4 10 ^3/uL (1.6-8.6); Neutrophils % (auto) 53.1 % (37.0-80.0); Nucleated Red Blood Cells % 0.2 %; Platelet Count (auto) 188 10^3/uL (140-450); Red Blood Cells 3.12 10^6/uL (4.0-5.20); Red Cell Distribution Width 14.8 % (11.8-14.3); White Blood Cell 6.5 10^3/uL (4.4-10.8)
[2020-05-20 06:47] LABS: BUN/Creatinine Ratio 25.6; Calcium 8.8 mg/dL (8.5-10.1); Potassium 5.1 mmol/L (3.5-5.1)
[2020-05-20] MEDS: LEVOTHYROXINE SODIUM 25 MCG TAB PO SCH (07:36)
[2020-05-20 09:00] VITALS: BP 99/58
[2020-05-20] MEDS ORDERED: LACT10SO3 PO (10:35)
[2020-05-20] MEDS ORDERED: DOCU100C8 PO (10:35)
[2020-05-20] MEDS: ALLOPURINOL 100 MG TAB PO SCH (11:03)
[2020-05-20] MEDS: CITALOPRAM HYDROBR 20 MG TAB PO SCH (11:03)
[2020-05-20] MEDS: DOCUSATE SOD 100 MG CAP PO SCH ×2 (11:03→22:00)
[2020-05-20] MEDS: FAMOTIDINE 20 MG TAB PO SCH (11:03)
[2020-05-20 13:00] VITALS: BP 114/49
[2020-05-20 17:00] VITALS: BP 113/58
[2020-05-20 22:00] VITALS: BP 97/53
[2020-05-21] MEDS: LACTULOSE 20Gm/30ML SOLN PO SCH ×6 (02:00→22:00)
[2020-05-21 04:51] VITALS: BP 115/49
[2020-05-21] MEDS: LEVOTHYROXINE SODIUM 25 MCG TAB PO SCH (06:31)
[2020-05-21 09:00] VITALS: BP 116/67
[2020-05-21] MEDS: ALLOPURINOL 100 MG TAB PO SCH (09:32)
[2020-05-21] MEDS: FAMOTIDINE 20 MG TAB PO SCH (09:32)
[2020-05-21] MEDS: CITALOPRAM HYDROBR 20 MG TAB PO SCH (09:32)
[2020-05-21] MEDS: GABAPENTIN 300 MG CAP PO SCH ×2 (09:32→23:31)
[2020-05-21] MEDS: OLANZapine 5 MG TAB PO SCH ×2 (09:33→23:32)
[2020-05-21] MEDS: DOCUSATE SOD 100 MG CAP PO SCH ×2 (10:00→22:00)
[2020-05-21 13:00] VITALS: BP 116/52
[2020-05-21 16:52] VITALS: BP 102/59
[2020-05-21 22:00] VITALS: BP 101/53
[2020-05-21] MEDS: ATORVASTATIN 20 MG TAB PO SCH (23:31)
[2020-05-22] MEDS: LACTULOSE 20Gm/30ML SOLN PO SCH ×4 (02:00→14:00)
[2020-05-22 04:40] VITALS: BP 123/55
[2020-05-22] MEDS: LEVOTHYROXINE SODIUM 25 MCG TAB PO SCH (05:38)
[2020-05-22] MEDS: DOCUSATE SOD 100 MG CAP PO SCH (08:59)
[2020-05-22] MEDS: OLANZapine 5 MG TAB PO SCH (09:28)
[2020-05-22] MEDS: FAMOTIDINE 20 MG TAB PO SCH (09:28)
[2020-05-22] MEDS: GABAPENTIN 300 MG CAP PO SCH (09:28)
[2020-05-22] MEDS: CITALOPRAM HYDROBR 20 MG TAB PO SCH (09:28)
[2020-05-22] MEDS: ALLOPURINOL 100 MG TAB PO SCH (09:28)
== END 2020-05-22 15:38 | DRG 392 ==
LOC: EDBD 15:17 → ER 15:18 → OVERFLOW 15:19 → EAST 23:26 → CENTRAL 05-18 19:20
PROVIDERS: ADMIT Nurse Practitioner Acute Care; ATTEND Internal Medicine Pulmonary Disease
DX: K59.00 Constipation, unspecified (principal); N17.9 Acute kidney failure, unspecified; F20.9 Schizophrenia, unspecified; F31.9 Bipolar disorder, unspecified; N18.30 Chronic kidney disease, stage 3 unspecified; S83.91XA Sprain of unspecified site of right knee, initial encounter; E11.22 Type 2 diabetes mellitus with diabetic chronic kidney disease; E78.5 Hyperlipidemia, unspecified; I12.9 Hypertensive chronic kidney disease with stage 1 through stage 4 chronic kidney disease, or unspecified chronic kidney disease; J44.9 Chronic obstructive pulmonary disease, unspecified; Z87.891 Personal history of nicotine dependence; Z79.84 Long term (current) use of oral hypoglycemic drugs; Z79.899 Other long term (current) drug therapy; Z90.49 Acquired absence of other specified parts of digestive tract; Z20.828 Contact with and (suspected) exposure to other viral communicable diseases; X58.XXXA Exposure to other specified factors, initial encounter; Y93.89 Activity, other specified; Y92.89 Other specified places as the place of occurrence of the external cause; Y99.8 Other external cause status
CPT/HCPCS: 36415; 74176; 80048; 80053; 83690; 85025; 87081; 87426; 96374; 97110; 97163; 97530; G0378